=== PATIENT | female | born 2000 | race Caucasian/White ===

== ENCOUNTER 2019-10-10 09:50 | Day surgery (SDC) | payer OTHER ==
[2019-10-07 12:17] LABS: HEMATOCRIT 39.2 % (36.0-47.0); HEMOGLOBIN 13.3 g/dL (12.0-15.5); MEAN CORPUSCULAR HEMOGLOBIN 28.8 pg (27.0-33.4); MEAN CORPUSCULAR HGB CONC 33.8 g/dL (32.0-36.0); MEAN CORPUSCULAR VOLUME 85 fl (80-97); PLATELET COUNT 268 10^3/uL (150-450); RED BLOOD COUNT 4.61 10^6/uL (3.72-5.28); RED CELL DISTRIBUTION WIDTH 13.9 % (11.5-14.0)
[2019-10-07 12:19] LABS: APPEARANCE,URINE CLEAR; BILIRUBIN,URINE NEGATIVE (NEGATIVE); COLOR,URINE YELLOW; GLUCOSE, URINE NEGATIVE (NEGATIVE); KETONES,URINE NEGATIVE (NEGATIVE); LEUKOCYTE ESTERASE,URINE NEGATIVE (NEGATIVE); NITRITE,URINE NEGATIVE (NEGATIVE); PROTEIN,URINE NEGATIVE (NEGATIVE); URINE SPECIFIC GRAVITY 1.017; UROBILINOGEN,URINE NEGATIVE mg/dL (<2.0)
--- NOTE | 2019-10-08 00:24 | EKG REPORT ---
SEVERITY:- NORMAL ECG - SINUS RHYTHM : Confirmed by: Manohar Delgadillo 08-Oct-2019 00:23:19
[~2019-10-10 09:50] MED LIST: DEXAMETHASONE SOD PHOSPHATE INJ 4 MG/1 ML VIAL ONE; GLYCOPYRROLATE 1 MG/5 ML VIAL ONE; KETOROLAC TROMETHAMINE 60 MG/2 ML SDV ONE; LACTATED RINGERS 1000 ML IV PRN; LIDOCAINE 0.5% INJ-PF (5 MG/ML) 50 ML SDV SUBCUT PRN; LIDOCAINE 2% INJ-PF (20 MG/ML) 2 ML AMPUL ONE; NEOSTIGMINE METHYLSULFATE 10 MG/10 ML VIAL ONE; ONDANSETRON HCL INJ/PF 4 MG/2 ML SDV ONE; ROCURONIUM BROMIDE INJ 50 MG/5 ML VIAL IV ONE
[2019-10-10] MEDS ORDERED: METHYLENE BLUE 50 MG/10 ML AMPULE ONE (11:59)
[2019-10-10] MEDS ORDERED: BUPIVACAINE HCL 0.25 % INJ/PF (2.5 MG/1 ML) 30 ML VIAL ONE (11:59)
[2019-10-10] MEDS ORDERED: HYDROMORPHONE HCL INJ/PF 2 MG/ML AMPULE ONE (12:03)
[2019-10-10] MEDS ORDERED: MIDAZOLAM 2 MG/2 ML INJ ONE (12:03)
[2019-10-10] MEDS ORDERED: PROPOFOL INJ 200 MG/20 ML VIAL IV ONE (12:03)
[2019-10-10] MEDS ORDERED: PROMETHAZINE HCL INJ 25 MG/1 ML VIAL IV PRN ×2 (13:06)
[2019-10-10] MEDS ORDERED: FENTANYL CITRATE INJ/PF 100 MCG/2 ML AMPUL IV PRN ×3 (13:06)
[2019-10-10] MEDS ORDERED: MEPERIDINE HCL/PF INJ 25 MG/1 ML DISP.SYRIN IV PRN (13:06)
[2019-10-10] MEDS ORDERED: DIPHENHYDRAMINE HCL 50 MG/ML VIAL IV PRN (13:06)
[2019-10-10] MEDS ORDERED: KETOROLAC TROMETHAMINE INJ/PF 30 MG/1 ML SDV IV PRN (13:26)
[2019-10-10] MEDS ORDERED: RINGERS SOLUTION,LACTATED 1,000 ML IV PRN (13:26)
[2019-10-10] MEDS ORDERED: OXYCODONE-ACETAMINOPHEN 5-325 MG TABLET PO PRN ×2 (13:26)
[2019-10-10] MEDS ORDERED: IBUPROFEN 800 MG TABLET PO PRN (13:26)
--- NOTE | 2019-10-10 13:38 | Operative Report ---
Operative Report DATE OF SURGERY: 10/10/19 PREOPERATIVE DIAGNOSIS: Polycystic ovarian syndrome, pelvic pain, irregular men struation, infertility POSTOPERATIVE DIAGNOSIS: Same OPERATION: Diagnostic laparoscopy with ovarian drilling and tubal chromotubation SURGEON: MARIA ELENA HOYOS ANESTHESIA: GA COMPLICATIONS: None ESTIMATED BLOOD LOSS: 10 cc INTRAOPERATIVE FINDINGS: Normal-appearing uterus tubes and polycystic ovaries, inspection of the posterior and anterior cul-de-sacs reveal no lesions suspicious for endometriosis, uterosacral ligaments show no lesions, chromotubation attempt did not demonstrate patent fallopian tubes PROCEDURE: Patient was taken to the operating room prepared and draped in normal sterile fashion in a dorsal lithotomy position. Under sterile conditions a Hawkins catheter was placed to gravity. A speculum was placed into the vagina and the cervix was located and grasped with a single-tooth tenaculum and prepped with Betadine. The uterus was then sounded to approximately 7-1/2 cm. A humi uterine manipulator was placed with out difficulty and syringe of methylene blue was attached via an extension tubing to the uterine manipulator. Those were changed and attention was turned to the upper portion of the case where an umbilical skin incision was made with a scalpel. Visualization the camera was introduced into the abdomen and the abdomen was inflated with approximately 2 L of CO2 gas. Placed in steep Trendelenburg. The camera was reintroduced and the above findings were noted. 2 chromotubation at this time revealed no flow of dye through the fallopian tubes but it was discovered that the manipulator had indeed fallen out of the cervix. For the rest of the case was proceeded and the inspection of the anterior and posterior cul-de-sacs and uterosacral ligament ligaments was performed with again no visualization of any type of lesions suspicious for endometriosis or any other tubal pelvic disease. The ovaries were inspected and indeed found to be quite polycystic therefore ovarian drilling was begun using two 5 mm ports that were placed under direct visualizat ion on either side of the umbilicus. The monopolar scissors were introduced atraumatic grasper was used to elevate each ovary and the ovary was drilled using the monopolar scissors in several places a depth of approximately 1/8 cm. Once this was completed the pelvic anatomy was again reinspected and found to be as above. I then changed gloves and went below to attempt repositioning of the uterine manipulator which was performed without difficulty. At this point I continue to hold the uterine manipulator in place and we continued with attempted chromotubation however the diet the uterine manipulator did extrude from the cervix once more. Positioned again and kept the balloon deflated this time to attempt better positioning or flow of the dye. We did accomplish some better flow of the dye however we did not note any dye coming through the fallopian tubes it was visible within the uterine muscle and we could tell that it was definitely going into the uterus however saw no spillage of the dye from either fallopian tube. At this time we discussed concluded the case and I made the decision that I would speak with the patient afterwards and discuss possibly doing a hysterosalpingogram at another time in order to confirm that the tubes were indeed not patent. The case was concluded with the 3 port sites were closed with 3-0 Vicryl sponge lap and needle counts were correct x2 and the patient was taken to recovery in stable condition
--- NOTE | 2019-10-10 13:41 | Discharge Summary ---
Discharge Summary (SDC) - Discharge Final Diagnosis: Polycystic ovarian syndrome, pelvic pain, irregular menstruation Date of Surgery: 10/10/19 Discharge Date: 10/10/19 Condition: Good Prescriptions: Oxycodone HCl/Acetaminophen [Percocet 5-325 mg Tablet] 1 tab PO Q4HP PRN #20 tablet PRN Reason: Ibuprofen [Motrin 800 mg Tablet] 800 mg PO NOW PRN #30 tablet PRN Reason: Referrals: CR PERALTA FNP [Primary Care Provider] - Discharge Diet: As Tolerated Respiratory Treatments at Home: Deep Breathing/Coughing Discharge Activity: Activity As Tolerated Report the Following to Your Physician Immediately: Shortness of Breath, Nausea, Vomiting, Fever over 101 Degrees
[2019-10-10] MEDS ORDERED: FENTANYL CITRATE INJ/PF 100 MCG/2 ML AMPUL ONE (13:53)
[2019-10-10] MEDS ORDERED: OXYCODONE-ACETAMINOPHEN 5-325 MG TABLET ONE (14:34)
[2019-10-10] MEDS ORDERED: IBUPROFEN 800 MG TABLET ONE (14:35)
[2019-10-10 15:37] VITALS: BP 97/66
== END 2019-10-10 15:45 | disposition home or self-care (01) ==
LOC: OROUT 09:50
PROVIDERS: ATTEND Obstetrics & Gynecology
DX: E28.2 Polycystic ovarian syndrome (principal); R10.2 Pelvic and perineal pain; N93.9 Abnormal uterine and vaginal bleeding, unspecified; N97.9 Female infertility, unspecified
CPT/HCPCS: 93005; 36415; 85027; 87635; 81005; 81025; 93010; 49320; 58350; 58999; J2250; J3010; J1170; J2704; Q9968; C9803; 840; J1100; J1885; J2405; J2710; J3490